=== PATIENT | male | born 1950 | race Caucasian/White ===

== ENCOUNTER → 2017-10-25 | Outpatient (CLI) | payer MEDICARE, BC ==
[~2017-10-25] MED LIST: ASPI-621 PO; ATOR-2 PO; FAMO20TA7 PO; METO25TA91 PO; TICA90TA PO
== END | disposition home or self-care (01) ==
LOC: CFH 08:47
PROVIDERS: ATTEND Internal Medicine Cardiovascular Disease
DX: I35.8 Other nonrheumatic aortic valve disorders (principal); I25.10 Atherosclerotic heart disease of native coronary artery without angina pectoris; E78.5 Hyperlipidemia, unspecified; Z95.5 Presence of coronary angioplasty implant and graft
CPT/HCPCS: 93306